=== PATIENT | male | born 1955 | race Caucasian/White ===

== ENCOUNTER 2016-10-09 22:57 | Emergency (ER) | payer OTHER ==
[2016-10-09 23:32] VITALS: BP 150/76
== END 2016-10-10 01:34 | disposition home or self-care (01) ==
LOC: ED 22:57
DX: R04.0 Epistaxis (principal); R42 Dizziness and giddiness; R03.0 Elevated blood-pressure reading, without diagnosis of hypertension

== ENCOUNTER 2018-09-04 18:36 | Inpatient (IN) | payer OTHER ==
[~2018-09-04] VITALS: Ht 165.1 cm; Wt 83.6 kg
[2018-09-04 18:46] VITALS: Ht 165.1 cm; Wt 83.6 kg
[2018-09-04 20:45] LABS: BASOPHIL % 0.6 % (0-2); PLATELET COUNT 244 x10^3mcL (130-400)
[2018-09-04 20:49] LABS: RED CELL DISTRIBUTION WIDTH 15.8 % (11.5-14.5)
[2018-09-04 20:54] LABS: CALCIUM 8.5 mg/dL (8.5-10.1); CARBON DIOXIDE 26.5 mmol/L (21-32); CHLORIDE SERUM 103 mmol/L (98-107); CREATININE SERUM 0.8 mg/dL (0.7-1.3); GFR1 > 60 mL/min; GLUCOSE SERUM 101 mg/dL (74-106); POTASSIUM SERUM 4.2 mmol/L (3.5-5.1); SODIUM SERUM 137 mmol/L (136-145)
[2018-09-04 20:59] LABS: ALBUMIN 3.4 g/dL (3.4-5.0); ALKALINE PHOSPHATASE 77 U/L (46-116); ALT/SGPT 39 U/L (16-63); AST/SGOT 17 U/L (15-37); CHOLESTEROL 245 mg/dL (<200); HDL CHOLESTEROL 41 mg/dL (40-60); PHOSPHOROUS 3.5 mg/dL (2.5-4.9); TOTAL PROTEIN, SERUM 7.3 g/dL (6.4-8.2); URIC ACID 5.7 mg/dL (3.5-7.2)
[2018-09-04 23:21] VITALS: BP 133/66
[2018-09-04 23:40] LABS: FREE T4 0.8 ng/dL (0.76-1.46); FREE THYROXINE INDEX 2.4 ug/dL (1.4-4.5); T4(THYROXINE) 6.6 ug/dL (4.7-13.3)
[2018-09-05 00:24] LABS: T3 TOTAL 0.91 ng/mL
[2018-09-05 01:10] VITALS: BP 133/66
[2018-09-05 06:45] VITALS: BP 137/89
[2018-09-05 09:00] VITALS: BP 129/79
[2018-09-05 09:18] LABS: microscopic required? YES; urine erythrocyte NEGATIVE (NEGATIVE)
[2018-09-05 13:21] VITALS: BP 131/76
[2018-09-05 17:18] VITALS: BP 127/80
[2018-09-05 22:19] VITALS: BP 122/81
[2018-09-06 06:18] LABS: PLATELET COUNT 278 x10^3mcL (130-400)
[2018-09-06 06:25] VITALS: BP 111/81
[2018-09-06 06:29] LABS: RED CELL DISTRIBUTION WIDTH 15.3 % (11.5-14.5)
[2018-09-06] MEDS ORDERED: MEDDP PO (06:34)
[2018-09-06 06:49] LABS: CALCIUM 9.1 mg/dL (8.5-10.1); CARBON DIOXIDE 27.3 mmol/L (21-32); CHLORIDE SERUM 103 mmol/L (98-107); CREATININE SERUM 0.8 mg/dL (0.7-1.3); GFR1 > 60 mL/min; GLUCOSE SERUM 133 mg/dL (74-106); MAGNESIUM 2.5 mg/dL (1.8-2.4); POTASSIUM SERUM 4.5 mmol/L (3.5-5.1); SODIUM SERUM 141 mmol/L (136-145)
[2018-09-06 09:42] VITALS: BP 111/81
[2018-09-06 13:11] LABS: BAND NEUTROPHIL 3 % (0-10); MONOCYTE 2 % (0-7); PLATELET MORPHOLOGY PLATELETS DECREASED; SEGMENTED NEUTROPHILS 90 % (37-75); rbc morphology (normal/abnorm) ABNORMAL (NORMAL)
== END 2018-09-06 10:10 | disposition home or self-care (01) | DRG 140 ==
LOC: ED 18:36 → DU 22:04 → MU 09-05 00:07 → DU 09-05 01:18
PROVIDERS: Emergency Medicine; ADMIT Internal Medicine
DX: J44.1 Chronic obstructive pulmonary disease with (acute) exacerbation (principal); E44.1 Mild protein-calorie malnutrition; E78.00 Pure hypercholesterolemia, unspecified; F17.210 Nicotine dependence, cigarettes, uncomplicated; E83.41 Hypermagnesemia; R73.03 Prediabetes; E78.5 Hyperlipidemia, unspecified; E66.9 Obesity, unspecified; R06.03 Acute respiratory distress; R09.02 Hypoxemia; Z82.49 Family history of ischemic heart disease and other diseases of the circulatory system; Z68.29 Body mass index [BMI] 29.0-29.9, adult
CPT/HCPCS: 36600; 83880; 84439; J2920; J7512; J7620; Q0092